=== PATIENT | female | born 2000 | race Caucasian/White ===

== ENCOUNTER 2019-03-10 15:39 | Emergency (ER) | payer MEDICAID, OTHER ==
[~2019-03-10] VITALS: Ht 167.6 cm; Wt 54.4 kg
[2019-03-10 16:01] VITALS: BP 109/63
[2019-03-10 16:55] LABS: Urine Bacteria FEW /hpf (None Seen); Urine Blood 1+ /uL (Negative); Urine Mucus FEW (None Seen); Urine Specific Gravity 1.025 (1.001-1.035); Urine WBC 14 /hpf (0 - 5)
[2019-03-10 17:08] LABS: Basophils # (auto) 0.1 uL; Basophils % (auto) 0.4 % (0.0-2.0); Eosinophils # (auto) 0.2 uL; Eosinophils % (auto) 0.9 % (0.0-7.0); Hematocrit 42.8 % (36.0-46.0); Hemoglobin 14.2 g/dL (12.2-16.2); Lymphocytes # (auto) 2.4 uL; Lymphocytes % (auto) 13.7 % (10.0-50.0); Mean Corpuscular Hemoglobin 29.6 pg (28.0-32.0); Mean Corpuscular Hgb Conc. 33.2 g/dL (32.0-36.0); Mean Corpuscular Volume 88.9 fL (80.0-100.0); Monocytes # (auto) 0.9 uL; Monocytes % (auto) 5.4 % (0.0-12.0); Neutrophils # (auto) 13.9 uL; Neutrophils % (auto) 79.6 % (37.0-80.0); Nucleated Red Blood Cells % 0.1 %; Platelet Count (auto) 228 10^3/uL (140-450); Red Blood Cells 4.82 10^6/uL (4.0-5.20); Red Cell Distribution Width 13.6 % (11.8-14.3); White Blood Cell 17.4 10^3/uL (4.4-10.8)
[2019-03-10 17:20] LABS: Albumin 3.9 g/dL (3.4-5.0); Calcium 9.1 mg/dL (8.5-10.1); Potassium 4.5 mmol/L (3.5-5.1)
[2019-03-10 17:22] LABS: Bilirubin, Total 0.2 mg/dL (0.2-1.0); Total Protein 7.5 g/dL (6.4-8.2)
== END 2019-03-10 20:59 | disposition left against medical advice (07) ==
LOC: ER 15:39
DX: N39.0 Urinary tract infection, site not specified (principal); Z87.59 Personal history of other complications of pregnancy, childbirth and the puerperium; Z53.29 Procedure and treatment not carried out because of patient's decision for other reasons
CPT/HCPCS: 36415; 76801; 76817; 80053; 81001; 84702; 85025